=== PATIENT | female | born 2000 | race American Indian/Alaskan Native ===

== ENCOUNTER 2021-06-22 16:37 | Emergency (ER) | payer SELFPAY ==
[2021-06-22 18:35] VITALS: BP 119/70
== END 2021-06-22 23:52 | disposition home or self-care (01) ==
LOC: ED 16:37
DX: N76.0 Acute vaginitis (principal); B96.89 Other specified bacterial agents as the cause of diseases classified elsewhere; N39.0 Urinary tract infection, site not specified; R10.2 Pelvic and perineal pain; Z79.899 Other long term (current) drug therapy
CPT/HCPCS: 81001; 81025